=== PATIENT | female | born 1930 | race Caucasian/White ===

== ENCOUNTER 2017-12-27 13:54 | Emergency (ER) | payer MEDICARE, BC ==
[~2017-12-27] VITALS: Ht 162.6 cm; Wt 72.7 kg
[2017-12-27 14:33] VITALS: Ht 162.6 cm; Wt 72.7 kg
[2017-12-27] MEDS ORDERED: ATIVAN0.5 MG PO (14:37)
[2017-12-27] MEDS ORDERED: LIPITOR10 MG PO (14:37)
[2017-12-27] MEDS ORDERED: NEURONTIN600 MG PO (14:38)
[2017-12-27] MEDS ORDERED: IPRAT-ALBUT 0.5-3 ML UPD (14:38)
[2017-12-27] MEDS ORDERED: LOSARTAN POTASS25 MG PO (14:39)
[2017-12-27] MEDS ORDERED: SERUM TEARS EACH EYE (14:42)
[2017-12-27] MEDS ORDERED: NORVASC10 MG PO (14:43)
[2017-12-27] MEDS ORDERED: ULTRAM50 MG PO (14:44)
[2017-12-27] MEDS ORDERED: PLAVIX75 MG PO (14:44)
[2017-12-27] MEDS ORDERED: VENTOLIN HFA18 GM INH (14:44)
[2017-12-27 15:33] LABS: BASOPHILS 0.2 % (0-2); EOSINOPHILS 1.9 % (0-7); HEMATOCRIT 37.4 % (36.0-48.0); HEMOGLOBIN 11.9 g/dL (12-16); IMMATURE GRANULOCYTES 0.2 % (0-5); MCH 29.6 pg (26.0-34.0); MCHC 31.8 g/dL (31.0-37.0); MEAN PLATELET VOLUME 10.6 fL (7.4-10.4); NEUTROPHILS 56.7 % (40-80); PLATELET COUNT 230 10x3/uL (130-400); RBC 4.02 10x6/uL (4.00-5.40); RDW 14.8 % (11.5-14.5); WBC 8.5 10x3/uL (4.8-10.8)
[2017-12-27 15:36] LABS: APPEARANCE CLEAR (CLEAR); BILIRUBIN NEGATIVE (NEGATIVE); COLOR YELLOW (YELLOW); GLUCOSE NEGATIVE (NEGATIVE); KETONE NEGATIVE (NEGATIVE); NITRITE NEGATIVE (NEGATIVE); PROTEIN NEGATIVE (NEGATIVE); UROBILINOGEN NORMAL (NORMAL)
[2017-12-27 15:39] LABS: BACTERIA FEW /hpf (NONE SEEN); EPITHELIAL CELLS 0-5 /hpf (0-5); RED CELLS - URINE OCC /hpf (0-5); WHITE CELLS - URINE 0-5 /hpf (0-5)
[2017-12-27 15:55] LABS: ALBUMIN 3.5 g/dL (3.4-5.0); ANION GAP 6.2 mmol/L (8-16); BILIRUBIN - TOTAL 0.29 mg/dL (0.2-1.3); CALCIUM 8.9 mg/dL (8.5-10.1); CARBON DIOXIDE 33.9 mmol/L (21.0-32.0); CREATININE - SERUM 0.8 mg/dL (0.6-1.3); POTASSIUM - SERUM 5.1 mmol/L (3.5-5.1); PROTEIN - SERUM 6.9 g/dL (6.4-8.2)
[2017-12-27] MEDS ORDERED: MEDROL DOSE PACK4 MG PO (16:50)
[2017-12-27] MEDS ORDERED: HYDROCODON-ACE1 EAC7 PO (16:50)
[2017-12-27] MEDS ORDERED: CYCLOBENZAPRINE10 MG PO (16:50)
[2017-12-27 17:36] VITALS: BP 158/67
== END 2017-12-27 17:37 | disposition home or self-care (01) ==
LOC: D.ER 13:54
PROVIDERS: Family Medicine
DX: S39.012A Strain of muscle, fascia and tendon of lower back, initial encounter (principal); X58.XXXA Exposure to other specified factors, initial encounter; Y93.89 Activity, other specified; Y92.019 Unspecified place in single-family (private) house as the place of occurrence of the external cause; M54.30 Sciatica, unspecified side; Z86.73 Personal history of transient ischemic attack (TIA), and cerebral infarction without residual deficits; J44.9 Chronic obstructive pulmonary disease, unspecified

== ENCOUNTER 2018-04-19 12:26 | Emergency (ER) | payer MEDICARE, BC ==
[~2018-04-19] VITALS: Ht 162.6 cm; Wt 70.5 kg
[~2018-04-19 12:26] MED LIST: ATIVAN0.5 MG PO; CYCLOBENZAPRINE10 MG PO; HYDROCODON-ACE1 EAC7 PO; IPRAT-ALBUT 0.5-3 ML UPD; LIPITOR10 MG PO; LOSARTAN POTASS25 MG PO; MEDROL DOSE PACK4 MG PO; NEURONTIN600 MG PO; NORVASC10 MG PO; PLAVIX75 MG PO; SERUM TEARS EACH EYE; ULTRAM50 MG PO; VENTOLIN HFA18 GM INH
[2018-04-19 12:48] VITALS: BP 148/86; Ht 162.6 cm; Wt 70.5 kg
[2018-04-19] MEDS ORDERED: ULTRAM50 MG PO (15:18)
== END 2018-04-19 16:15 | disposition home or self-care (01) ==
LOC: D.ER 12:26
DX: M50.30 Other cervical disc degeneration, unspecified cervical region (principal); I10 Essential (primary) hypertension; J44.9 Chronic obstructive pulmonary disease, unspecified

== ENCOUNTER 2018-07-18 15:35 | Emergency (ER) | payer MEDICARE, BC ==
[~2018-07-18] VITALS: Ht 162.6 cm; Wt 72.7 kg
[2018-07-18 15:42] VITALS: Ht 162.6 cm; Wt 72.7 kg
[2018-07-18 20:34] LABS: APPEARANCE CLEAR (CLEAR); BILIRUBIN NEGATIVE (NEGATIVE); COLOR STRAW (YELLOW); GLUCOSE NEGATIVE (NEGATIVE); KETONE NEGATIVE (NEGATIVE); NITRITE NEGATIVE (NEGATIVE); PROTEIN NEGATIVE (NEGATIVE); UROBILINOGEN NORMAL (NORMAL)
[2018-07-18 22:16] VITALS: BP 215/101
== END 2018-07-18 22:17 | disposition home or self-care (01) ==
LOC: D.ER 15:35
PROVIDERS: Family Medicine
DX: M51.36 Other intervertebral disc degeneration, lumbar region (principal)

== ENCOUNTER 2019-03-29 11:56 | Observation (INO) | payer MEDICARE, BC ==
[~2019-03-29] VITALS: Ht 162.6 cm; Wt 74.8 kg
--- NOTE | ~2019-03-29 | HEMODYNAMI ---
PATIENT:CRISTY HUDDLESTON MEDICAL RECORD: [id number] : 30 LOCATION:[facility] D.2124 ADMISSION DATE: 03/29/19 Generatedon:03/30/201914:04 Patient name: CRISTY HUDDLESTON Patient #: [id number] SSN: [id number] : 1930 Date of study: 03/30/2019 Page: Of Hemodynamic Procedure Report Patient Data Patient Demographics Procedure consent was obtained First Name: CRISTY Gender: Female Last Name: FLAQUITO : 1930 Patient #: [id number] Age: 88 year(s) Race: SSN: [id number] Additional ID: [id number] Contact details [address]: [address] [place] [address] State: [place] City: [place] Zip code: [address] Past Medical History Allergies Allergen Reaction Date Comments Reported Other allergy 03/30/2019 LOVOFLOXACIN Admission Admission Data Admission Date: 03/29/2019 Admission Time: 17:45 Arrival Date: 03/30/2019 Arrival Time: 0:00 Admit Source: Emergency HIC #: [id number] department Room #: D.2124 Height (in.): 64.17 BSA: 1.81 (m2) Height (cm.): 163 BMI: 28.23 (kg/m2) Weight (lbs.): 165.35 Weight (kg.): 75 Lab Results Lab Result Date: 03/30/2019 Lab Result Time: 0:00 Biochemistry Name Units Result Min Max BUN mg/dl 18 --(---*)-- 7 18 Creatinine mg/dl 0.9 --(-*--)-- 0.6 1.3 Creatinine l 1.1 -*(----)-- 21 215 Kinase eGFR ml/min 61.00550 *-(----)-- 90 120 NONAFRICAN Troponin l ng/ml 0.027 --(-*--)-- 0 0.06 CBC Name Units Result Min Max Hemoglobin g/dl 11.6 *-(----)-- 13.5 17.5 Procedure Procedure Types Cath Procedure Diagnostic Procedure [facility] w/Coron[facility] Procedure Description Procedure Date Procedure Date: 03/30/2019 Procedure Start Time: 13:50 Procedure End Time: 14:02 Procedure Staff Name Function Carlos Ascencio MD Performing Physician Eliza Wright RT Monitor Lis Ivy RT Monitor Dana Holland RT Scrub Shantelle Austin RN Nurse Indication Chest pain Procedure Data Cath Procedure Fluoroscopy Diagnostic fluoroscopy Total fluoroscopy Time: 1.4 time: 1.4 min min Diagnostic fluoroscopy Total fluoroscopy dose: 446 dose: 446 mGy mGy Contrast Material Contrast Material Type Amount (ml) Isovue 300 64 Entry Location Entry Primary Successful Side Size Upsize Upsize Entry Closure Succes sful Closure Location (Fr) 1 (Fr) 2 (Fr) Remarks Device Remarks Femoral Right 5 Fr Exoseal artery Estimated blood loss: 5 ml Diagnostic catheters Device Type Used For End Catheter Placement MULTIPACK JL 4.0 5Fr Left Coronary catheter Angiography MULTIPACK 3DRC 5Fr Right Coronary catheter Angiography MULTIPACK Pigtail 5 Fr LV Angiography catheter Procedure Complications No complications Procedure Medications Medication Administration Route Dosage 0.9% NaCl I.V. 100 ml/hr Lidocaine 2% added to field 20 Heparin Flush Bag added to field 2 bags (1000units/500ml NS) Oxygen NC 2 l/min Versed I.V. 0.5 mg Fentanyl I.V. 25 mcg Hemodynamics Rest BSA: 1.81 (m2) HGB: 11.6 (g/dl) O2 Consumption: Estimated: 157.26 (ml/min) O2 Co nsumption indexed: Estimated:86.88 (ml/min/m) Heart Rate: 66 (bpm) Pressure Samples Time Site Value (mmHg) Purpose Heart Use Rate(bpm) 13:56 LV 145/6,9 Snapshot 64 13:56 AO 119/63(89) Pullback 78 13:56 LV 138/12,14 Pullback 78 Gradients Valve Time Site 1 Site 2 Mean SEP/DFP Peak To Heart Use (mmHg) (sec/min) Peak Rate (mmHg) (bpm) Aortic 13:56 LV AO 13 22 19 78 138/12,14 119/63(89) Calculations Valve P-P Mean Valve Index Valve Source Name Gradient Area Flow (cm2) Aortic 19 13 19 13 Snapshots Pre Cath Intra NCS Post Cath Vital Signs Time Heart Resp SPO2 etCO2 NIBP (mmHg) Rhythm Pain Sedation Rate (ipm) (%) (mmHg) Status Level (bpm) 13:12:25 69 24 99 34 158/81(131) NSR 0 (11) 10(A) , No pain 13:16:43 66 27 97 28.8 159/69(130) NSR 0 (11) 10(A) , No pain 13:20:57 65 22 93 0 151/80(134) NSR 0 (11) 10(A) , No pain 13:25:13 64 22 95 0 138/70(119) NSR 0 (11) 10(A) , No pain 13:29:25 62 35 97 20.4 116/67(92) NSR 0 (11) 10(A) , No pain 13:33:28 60 35 97 22.7 113/64(92) NSR 0 (11) 10(A) , No pain 13:37:32 61 36 97 20.4 110/61(82) NSR 0 (11) 10(A) , No pain 13:41:36 60 37 97 21.9 102/61(85) NSR 0 (11) 10(A) , No pain 13:45:39 59 35 97 19.7 99/53(75) NSR 0 (11) 10(A) , No pain 13:49:41 68 34 97 20.4 94/53(75) NSR 0 (11) 10(A) , No pain 13:54:28 64 36 98 28 134/72(101) NSR 0 (11) 9(A) , No pain 13:58:36 64 20 98 30.2 141/73(117) NSR 0 (11) 10(A) , No pain 14:02:46 65 16 97 37.1 147/75(127) NSR 0 (11) 10(A) , No pain Medications Time Medication Route Dose Verified Delivered Reason Notes Effe ctiveness by by 13:11:46 0.9% NaCl I.V. 100 Carlos Shantelle used for ml/hr St René Austin procedure MD SOW 13:12:01 Lidocaine 2% added 20ml Carlos Shantelle for local to vial [facility] anesthetic field RN 13:12:14 Heparin Flush added 2 Carlos Pepper used for Bag to bags Sigel Geovanna procedure (1000units/500ml field MD SOW NS) 13:12:24 Oxygen NC 2 Carlos Pepper for low 02 l/min Sigel Geovanna sats MD SOW 13:50:35 Versed I.V. 0.5 Carlos Pepper for mg Sonu Geovanna sedation MD SOW 13:50:49 Fentanyl I.V. 25 Carlos Pepper for mcg Sigel Geovanna sedation MD SOWmethods and procedures analyst Log Time Note 12:54:01 Informed consent obtained and on chart 12:55:00 Indication : Chest pain 12:55:10 Procedure Status Urgent Heart Cath (IP). 12:55:14 Eliza Wright RT(R) sent for patient. Start room use. 12:55:16 Time tracking: Regular hours (M-F 7:00 - 5:00) 12:55:23 Plan of Care:Hemodynamics will remain stable., Cardiac rhythm will remain stable., Comfort level will be maintained., Respiratory function will remain adequate., Patient/ family verbilizes understanding of procedure., Procedure tolerated without complication., Recovers from procedure without complications.. 12:57:50 Arrival Date: 03/30/2019 12:00:00 AM 12:58:16 Admit Source: Emergency department 12:58:27 Patient Height : 64.17 inches 12:58:34 Patient Weight : 165.35 lbs 12:59:40 Lab Result : Creatinine Kinase 1.1 l 12:59:40 Lab Result : Creatinine 0.9 mg/dl 12:59:40 Lab Result : BUN 18 mg/dl 12:59:40 Lab Result : eGFR NONAFRICAN 61.11596 ml/min 12:59:40 Lab Result : Hemoglobin 11.6 g/dl 12:59:40 Lab Result : Troponin l 0.027 ng/ml 13:03:04 Patient received from Med II to CCL 2 Alert and oriented. Tansferred to table in Supine position. 13:04:07 Warm blankets applied, and eugene hugger turned on for patient comfort. 13:04:09 Correct patient and procedure confirmed by team. 13:04:10 ECG and BP/O2 sat monitors applied to patient. 13:07:01 Pre-procedure instructions explained to patient. 13:07:01 Pre-op teaching completed and patient verbalized understanding. 13:07:03 Family unavailable. 13:07:04 Patient NPO since Midnight. 13:07:50 Full Disclosure recording started 13:08:06 Patient allergic to Other allergyLOVOFLOXACIN 13:08:08 Is the patient allergic to Iodine/contrast media? No. 13:08:10 Is patient on blood thinner?Yes 13:08:13 Patient diabetic? No. 13:08:15 Patient not . Patient is over age 55. 13:08:18 Previous problem with sedation/anesthesia? No ? 13:08:20 Snore? Yes 13:08:22 Sleep apnea? No 13:08:33 WEARS HOME O2 AT 2L 13:08:36 Deviated septum? No 13:08:36 Opens mouth fully? Yes 13:08:37 Sticks out tongue? Yes 13:08:40 Airway obstruction? Yes COPD 13:08:43 Dentures? Yes IN 13:08:46 Pre procedure: right dorsailis pedis pulse 1+ Palpable, but thready & weak; easily obliterated 13:08:53 Patient pain scale 0/10 ?. 13:08:59 IV patent on arrival in left antecubital with 0.9% NaCl at [facility]. 13:09:02 Lab results completed and on chart. 13:09:08 Risk of Mortality: 1.7 13:09:11 Risk of blood transfusion: 5.5 13:09:15 Risk of JACOB: 4.7 13:09:34 Right groin area was prepped with chlora-prep and draped in sterile fashion 13:09:35 Alarms reviewed by R. N. 13:09:36 Sharps counted by scrub and verified by R.N. 13:10:33 Use device set Femoral Dx 13:10:34 ACIST Syringe (19380) opened to sterile field. 13:10:35 Bag Decanter (2001S) opened to sterile field. 13:10:36 ACIST Hand Control (62107) opened to sterile field. 13:10:37 ACIST Manifold (66616) opened to sterile field. 13:10:38 Tegaderm 4 x 4 (1626W) opened to sterile field. 13:10:39 Medline Cath Pack ([id number]) opened to sterile field. 13:10:40 DIAGNOSTIC Multipack 5Fr catheter set (CO1381) opened to sterile field. 13:10:41 SHEATH 5FR [employer] (ATZ481) opened to sterile field. 13:10:41 EMERALD Guide Wire (285-637) opened to sterile field. 13:11:16 Vital chart was started 13:11:46 0.9% NaCl 100 ml/hr I.V. was administered by Shantelle Austin RN; used for procedure; Verbal order read back and verified. 13:12:01 Lidocaine 2% 20ml vial added to field was administered by Shantelle Austin RN; for local anesthetic; Verbal order read back and verified. 13:12:14 Heparin Flush Bag (1000units/500ml NS) 2 bags added to field was administered by Shantelle Austin RN; used for procedure; Verbal order read back and verified. 13:12:24 Oxygen 2 l/min NC was administered by Shantelle Austin RN; for low 02 sats; Verbal order read back and verified. 13:15:45 ACC The patient was administered the following blood thiners within the last 24 hours: ACCPlavix 13:16:42 Stress Test: no; N/A ? 13:18:07 Baseline sample Acquired. 13:18:44 Rhythm: sinus rhythm 13:22:08 Zero performed for pressure channel P1 13:34:35 Diagnostic Cath Status : Urgent 13:34:38 PCI Cath Status : Elective 13:37:12 ACCPatient has been prescribed/administered the following anti-anginal medication within the last 2 weeks: ARB 13:47:26 --------ALL STOP TIME OUT------ 13:47:27 Final Timeout: patient, procedure, and site verified with staff and physician. All members of the team are in agreement. 13:47:28 Right groin site verified by team. 13:47:31 Fire Safety Assessment: A--An alcohol-based skin anteseptic being used preoperatively., C--Open oxygen or nitrous oxide is being used., D--An ESU, laser, or fiber-optic light is being used. 13:47:33 Physical assessment completed. ASA score P 3 - A patient with severe systemic disease as per Carlos Ascencio MD. 13:47:38 2) 60-89 Mildly reduced kidney function, and other findings (as for stage 1) point to kidney disease. 13:47:45 Maximum allowable contrast dose (3.7 X eGFR X 0.75)172 ml. 13:47:48 Sedation plan: IV Moderate Sedation Medication:Versed, Fentanyl 13:50:35 Versed 0.5 mg I.V. was administered by Shantelle Austin RN; for sedation; Verbal order read back and verified. 13:50:39 Procedure started. 13:50:49 Fentanyl 25 mcg I.V. was administered by Shantelle Austin RN; for sedation; Verbal order read back and verified. 13:50:57 Local anesthetic to right femoral artery with Lidocaine 2% by Carlos Ascencio MD.INITIAL ACCESS ONLY 13:51:46 A 5 Fr sheath was inserted into the Right Femoral artery 13:52:07 A MULTIPACK JL 4.0 5Fr catheter was advanced over the wire and used for Left Coronary Angiography. 13:52:48 LCA angiography performed. 13:53:00 Injector settings: Ml/sec: 3, Volume: 6, 13:53:59 Catheter removed. 13:54:08 A MULTIPACK 3DRC 5Fr catheter was advanced over the wire and used for Right Coronary Angiography. 13:54:45 RCA angiography performed. 13:54:52 ACCDominant side:Right 13:54:56 Injector settings: Ml/sec: 3, Volume: 6, 13:55:00 Catheter removed. 13:55:09 A MULTIPACK Pigtail 5 Fr catheter was advanced over the wire and used for LV Angiography. 13:56:29 LV hemodynamics recorded. 13:56:35 EF : 55 % 13:56:49 LV gram done using HUTSON 13:56:54 Injector settings: Ml/sec: 10, Volume: 20, 13:57:00 Catheter removed. 13:57:19 EXOSEAL 5Fr (EX500) opened to sterile field. 13:57:49 Sheath removed intact; hemostasis achieved with Exoseal to the Right Femoral artery. 13:57:55 Procedure ended.(Physican Out) 13:58:05 Contrast amount:Isovue 300 64ml. 13:58:08 Maximum allowable dose exceeded? No. 13:58:32 Fluoroscopy time 01.40 minutes. 13:58:40 Flurop Dose total: 446 13:58:40 Fluoroscopy dose: 446 mGy 13:58:54 Dose Area Product 14113 mGy/cm. 13:58:59 Insertion/operative site no bleeding no hematoma. 13:59:05 Post-op/insertion site Right Femoral artery dressed using a 4 x 4 and Tegaderm. 13:59:11 Post right femoral artery:stable 13:59:14 Post Procedure Pulses reassessed and unchanged 13:59:18 Sharps counted by scrub and verified by R.N. 13:59:28 Post-procedure physical assessment completed. ASA score P 2 - A patient with mild systemic disease as per Carlos Ascencio MD. 13:59:39 Post procedure rhythm: unchanged. 13:59:44 Estimated blood loss: 5 ml 13:59:46 Post procedure instruction explained to patient.Patient verbalizes understanding. 13:59:48 Patient needs reinforcement of post procedure teaching. 14:01:21 Procedure and supply charges have been captured, reviewed, submitted and are correct. 14:02:13 Procedure Complication : No complications 14:02:17 Vital chart was stopped 14:02:24 [facility] Findings: mild to moderate CAD (<70%) 14:02:26 Operative report dictated upon procedure completion. 14:02:27 See physician's report for complete and final results. 14:02:32 Report given to [facility] II. 14:02:37 Patient transfered to Med II with Bed. 14:02:41 Procedure ended. 14:02:41 Full Disclosure recording stopped 14:02:50 End room use (Document Last) 14:02:50 End room use (Document Last) Device Usage Item Name Manufacture Quantity Catalog Hospital Part Current Minimal L ot# / Number Charge Number Stock Stock Serial# Code ACIST Acist 1 85614 142312 374638 320755 20 Syringe Medical (22649) Systems Inc Bag Microtek 1 878114 20880 095767 5 Decanter Medical Inc. () ACIST Hand Acist 1 63544 721808 017750 451673 5 Control Medical (13617) Systems Inc ACIST Acist 1 31295 778414 631774 396923 5 Manifold Medical (18954) Systems Inc Tegaderm 4 3M 1 1626W 703789 671074 217043 5 x 4 (1626W) Medline Medline 1 [id number] 721818 79388 134200 5 Cath Pack ([id number]) DIAGNOSTIC Cardinal 1 IC1766 626244 67242 338487 30 Multipack Health 5Fr catheter set (AR4902) SHEATH 5FR Terumo 1 BFC444 208868 595289 683935 5 [employer] (FPO719) EMERALD Cardinal 1 502-159 166881 025884 662037 5 Guide Wire Health (502-250) MULTIPACK Cardinal 1 006994 5 JL 4.0 5Fr Health catheter MULTIPACK Cardinal 1 015796 5 3DRC 5Fr Health catheter MULTIPACK Cardinal 1 382924 5 Pigtail 5 Health Fr catheter EXOSEAL 5Fr Cardinal 1 EX500 875962 855771 117834 10 (EX500) Health Signature Audit [place] Stage Time Signature Unsigned Intra-Procedure 03/30/2019 Lis 2:03:18 PM Cata RT(R) (CV) Intra-Procedure 03/30/2019 Shantelle 2:03:55 PM Geovanna SOW Intra-Procedure 03/30/2019 Carlos Tamayo 2:04:35 PM René SOLIS Signatures Performing Physician : Signature : Carlos Ascencio MD Date : Time : Monitor : Eliza Wright Signature : RT Date : Time : Monitor : Lis Signature : Cata RT Date : Time : Nurse : Shantelle Signature : Geovanna RN Date : Time : [place] [address] [place] [address]
[2019-03-29 12:43] LABS: BASOPHILS 0.2 % (0-2); EOSINOPHILS 0.5 % (0-7); HEMATOCRIT 38.7 % (36.0-48.0); HEMOGLOBIN 12.5 g/dL (12-16); IMMATURE GRANULOCYTES 0.4 % (0-5); LYMPHOCYTES 14.9 % (15-50); MCH 31.1 pg (26.0-34.0); MCHC 32.3 g/dL (31.0-37.0); MCV 96.3 fL (80.0-100.0); MEAN PLATELET VOLUME 9.9 fL (7.4-10.4); MONOCYTES 16.3 % (2-11); NEUTROPHILS 67.7 % (40-80); RBC 4.02 10x6/uL (4.00-5.40); RDW 17.5 % (11.5-14.5); WBC 9.5 10x3/uL (4.8-10.8)
[2019-03-29 13:04] LABS: CALC OSMOLALITY 288 mosm/kg (275-300); CARBON DIOXIDE 26.8 mmol/L (21.0-32.0); CHLORIDE - SERUM 107 mmol/L (98-107); CREATININE - SERUM 0.9 mg/dL (0.6-1.3); GLUCOSE 94 mg/dL (74-106); POTASSIUM - SERUM 4.2 mmol/L (3.5-5.1); SODIUM 144 mmol/L (136-145); UREA NITROGEN 19 mg/dL (7-18); eGFR NON AFRICAN AMERICAN 62 mL/min (90-120)
[2019-03-29 13:20] LABS: ALBUMIN 3.4 g/dL (3.4-5.0); ALKALINE PHOSPHATASE 67 U/L (46-116); ALT (SGPT) 17 U/L (10-68); AMYLASE - SERUM 55 U/L (25-115); BILIRUBIN - TOTAL 0.61 mg/dL (0.2-1.3); CKMB 0.9 U/L (0.0-3.6); CREATINE KINASE 32 UL (21-215); LIPASE 250 U/L (73-393); PRO BNP 4438 pg/mL (0-450); PROTEIN - SERUM 6.1 g/dL (6.4-8.2); TROPONIN-I 0.024 ng/mL (0.000-0.060)
[2019-03-29 13:25] LABS: PLATELET COUNT 299 10x3/uL (130-400)
[2019-03-29 13:31] LABS: APTT 28.4 SECONDS (22.8-39.4); INR 1.09 (0.85-1.17); PROTIME 13.6 SECONDS (11.6-15.0)
[2019-03-29 13:40] LABS: D-DIMER-QUANTITATIVE 2.33 ug/mLFEU (0.20-0.54)
[2019-03-29 14:43] LABS: APPEARANCE CLEAR (CLEAR); BACTERIA FEW /hpf (NEGATIVE); BILIRUBIN NEGATIVE (NEGATIVE); COLOR YELLOW (YELLOW); EPITHELIAL CELLS OCC /hpf (0-5); GLUCOSE NEGATIVE (NEGATIVE); KETONE NEGATIVE (NEGATIVE); MUCUS <1+ /lpf (NONE SEEN); NITRITE NEGATIVE (NEGATIVE); PROTEIN NEGATIVE (NEGATIVE); RED CELLS - URINE NONE SEEN /hpf (0-5); UROBILINOGEN NORMAL (NORMAL); WHITE CELLS - URINE OCC /hpf (NEGATIVE)
--- NOTE | 2019-03-29 17:56 | NUR ---
TRIED TO CALL REPORT ON PT BUT WAS TOLD WOULD HAVE TO BE CALLED BACK
--- NOTE | 2019-03-29 18:19 | NUR ---
FIXING TO TAKE PT TO ROOM AND MED II CALLED AND STATED THE ROOM WAS DIRTY AND THEY WOULD CALL BACK WHEN CLEANED
--- NOTE | 2019-03-29 18:48 | NUR ---
STILL WAITING ON ROOM TO BE CLEANED
[2019-03-29 20:00] VITALS: BP 158/74
[2019-03-29 20:24] VITALS: BP 158/74; BMI 28.4
--- NOTE | 2019-03-29 20:30 | NUR ---
RECIEVED REPORT FROM OUTGOING NURSE. PT ARRIVED FROM ER, VIA BED. INITIAL VSS, AAOX4, NO S/S OF DISTRESS. PT C/O SOB. PLACED PT ON 2L O2 AND NOTIFIED RT ABOUT PT'S BREATHING TREATMENT. PT ALSO VOMITING ON ARRIVAL TO UNIT. PRN ZOFRAN GIVEN. PT VOICED THANKS.
--- NOTE | 2019-03-29 20:46 | NUR ---
PT RECIEVING BREATHING TX AT THIS TIME. WARM BLANKET ALSO PROVIDED PER PT'S REQUEST. WILL CPOC.
[2019-03-30] VITALS: BP 132/60
[2019-03-30 04:00] VITALS: BP 150/62
[2019-03-30 05:49] LABS: ALBUMIN 2.9 g/dL (3.4-5.0); ALKALINE PHOSPHATASE 63 U/L (46-116); ALT (SGPT) 15 U/L (10-68); CALC OSMOLALITY 291 mosm/kg (275-300); CALCIUM 8.9 mg/dL (8.5-10.1); CARBON DIOXIDE 29.6 mmol/L (21.0-32.0); CHLORIDE - SERUM 109 mmol/L (98-107); CKMB 1.1 U/L (0.0-3.6); CREATINE KINASE 40 UL (21-215); CREATININE - SERUM 0.9 mg/dL (0.6-1.3); GLUCOSE 82 mg/dL (74-106); POTASSIUM - SERUM 4.3 mmol/L (3.5-5.1); PROTEIN - SERUM 5.4 g/dL (6.4-8.2); SODIUM 146 mmol/L (136-145); TROPONIN-I 0.027 ng/mL (0.000-0.060); UREA NITROGEN 18 mg/dL (7-18); eGFR NON AFRICAN AMERICAN 62 mL/min (90-120)
[2019-03-30 06:00] LABS: BASOPHILS 0.2 % (0-2); EOSINOPHILS 0.9 % (0-7); HEMOGLOBIN 11.6 g/dL (12-16); IMMATURE GRANULOCYTES 0.4 % (0-5); LYMPHOCYTES 15.4 % (15-50); MCH 30.8 pg (26.0-34.0); MCHC 31.4 g/dL (31.0-37.0); MCV 98.1 fL (80.0-100.0); MEAN PLATELET VOLUME 10.5 fL (7.4-10.4); MONOCYTES 16.8 % (2-11); NEUTROPHILS 66.3 % (40-80); PLATELET COUNT 285 10x3/uL (130-400); RBC 3.77 10x6/uL (4.00-5.40); RDW 17.8 % (11.5-14.5); WBC 8.1 10x3/uL (4.8-10.8)
[2019-03-30 06:30] LABS: BILIRUBIN - TOTAL 0.47 mg/dL (0.2-1.3)
--- NOTE | 2019-03-30 07:58 | NUR ---
ASSESSMENT DONE. DENIES NEEDS
[2019-03-30 09:07] LABS: CHOL - HDL RATIO 3.9 ratio (2.3-4.1); LDL-HDL RATIO 2.5 ratio (1.5-3.5)
--- NOTE | 2019-03-30 09:52 | NUR ---
I have reviewed this patient and I concur with the Shift Assessment completed by the Licensed Practical Nurse today this shift.
[2019-03-30 09:57] VITALS: BP 105/57
[2019-03-30 12:37] VITALS: BP 130/64
[2019-03-30 12:49] VITALS: Ht 162.6 cm; Wt 74.8 kg
--- NOTE | 2019-03-30 12:57 | NUR ---
TO FORKLIFT MATERIAL HANDLER PER BED
--- NOTE | 2019-03-30 12:59 | CN ---
PATIENT NAME:CRISTY HUDDLESTON MEDICAL RECORD: [id number] : [birth year] LOCATION:[facility] D.2124 ADMIT DATE: 03/29/19 ACCOUNT: [id number] CONSULTING PHYSICIAN: SARAVANAN NEGRETE MD REFERRING PHYSICIAN: EZEKIEL CLEVELAND MD DATE OF CONSULTATION: 03/30/2019 HISTORY OF PRESENT ILLNESS: An 88-year-old female with a history of underlying obstructive pulmonary disease, hypertension, hyperlipidemia, admitted with chest pain. This occurred when getting ready to take a shower, radiating to the left jaw and arm accompanied by nausea with marked exacerbation of usual baseline, dyspnea. We are asked to see her concerning her cardiovascular status. PAST MEDICAL HISTORY: Includes: 1. History of hypertension. 2. Hyperlipidemia. 3. Obstructive coronary artery disease. 4. Osteoarthritis. ALLERGIES: LEVAQUIN. MEDICATIONS: Typically include Flexeril 10 mg p.o. b.i.d., Plavix 75 every day, atorvastatin 10 every day, losartan 50 every day, amlodipine 10 every day, Neurontin 600 mg every day. SOCIAL HISTORY: Lives by herself. Nonsmoker. He is able to care of ADLs. No set exercise program REVIEW OF SYSTEMS: The patient reports easy bruising but reports no swollen glands. The patient reports no fever, no night sweats, no significant weight gain, no significant weight loss. No significant exercise tolerance. The patient reports no dry eyes, no irritation, no vision change. Patient reports no difficulty hearing and no ear pain. Patient reports no frequent nose bleeds or nose and sinus problems. Patient reports on arm pain on exertion. No shortness of breath while lying down. No history of heart murmur. Patient reports no cough, no wheezing or coughing up blood. Patient reports no abdominal pain, no vomiting. Normal appetite. No diarrhea and not vomiting blood. No nausea and no constipation. Patient reports no incontinence. No difficulty urinating. No hematuria. No increased frequency. Patient reports no muscle aches. No weakness, no arthralgias, no back pain. No swelling of the extremities. Patient reports no abnormal mole, no jaundice, no rashes. Reports no loss of consciousness. No weakness and no numbness. No seizures, dizziness, or headaches. The patient reports no depression, no sleep disturbance, feeling safe in a relationship and no alcohol abuse. Patient reports on fatigue. Reports no runny nose or sinus pressure. No itching, no hives, and no frequent sneezing. PHYSICAL EXAMINATION: GENERAL: Pleasant female in no acute distress, appears stated age. VITAL SIGNS: Blood pressure 150/62, pulse 64 and regular. HEENT: Normocephalic, atraumatic. NECK: No JVD or bruit. HEART: Regular. II/ systolic ejection murmur. LUNGS: Slightly prolonged expiratory phase. No active wheezes. ABDOMEN: Soft, nontender. CONSULT REPORT [id number] CRISTY HUDDLESTON EXTREMITIES: Pulses 2+. No edema. DIAGNOSTIC DATA: EKG shows left axis deviation, poor R-wave progression. IMPRESSION: Acute coronary syndrome, multiple risk factors. PLAN: For diagnostic angiography, intervention based on the above. TRANSINT:[id number] Voice Confirmation ID: [id number] DOCUMENT ID: [id number] SARAVANAN NEGRETE MD at 1259 CC: [id number] DICTATION DATE: 03/30/19 0850 TRUST OFFICER: 03/30/19 1105 ADM IN [place] [id number] [place] [address]
--- NOTE | 2019-03-30 15:36 | NUR ---
UPON ADMIT, PATIENT HAS NOT HAD A FLU SHOT THIS YEAR. FAMILY REPORTS THAT SHE JUST HAD ANTIBIOTICS FOR "A VIRUS IN THE EYE". I ASKED THAT THEY SPEAK TO DR. MORRIS WHEN TO GET FLU SHOT.
--- NOTE | 2019-03-30 16:04 | NUR ---
DC GIVEN TO PT
--- NOTE | 2019-03-30 16:35 | NUR ---
DC HOME PER PERSONAL CAR
--- NOTE | 2019-03-31 07:00 | MORECARE ---
CASE MANAGEMENT DISCHARGE SUMMARY PATIENT: CRISTY BENNETT UNIT: [id number] ADM DATE: 03/29/19 AGE: 88 : 30 SEX: F ROOM/BED: D.2124 AUTHOR: MELISA SPANN PHYSICIAN: REFERRING PHYSICIAN: EZEKIEL CLEVELAND MD DATE OF SERVICE: 03/31/19 Discharge Plan Patient Name: CRISTY BENNETT [facility] [facility] 1930 Planned Disposition: Home Anticipated Discharge Date: 03/30/19 Discharge Date: 03/30/2019 Expected LOS: 1 Initial Reviewer: [email or web address] Initial Review Date: 03/31/2019 Generated: 03/31/19 7:59 am Coverage Notice Reviewer: [email or web address] Colten Benavides Notice Issued Date-Time: 03/29/2019 17:08 Notice Type: Medicare Outpatient Observation Notice Notice Delivered To: Patient Relationship to Patient: Self Oracle Database Consultant Name: Joseph Bennett Delivery Method: HAND - Hand Delivered Lillian Days: Prior Verbal Notification: Recipient Understood Notice: Yes Recipient Signature: Yes Med Rec Note Co-signed by Attending: Coverage Notice Comment: DOWNING delivered to and signed by patient. Original to patient and chart. Patient Name: CRISTY BENNETT Page [phone] at 0700 All edits/amendments must be made on the electronic document DICTATION DATE: 03/31/1959 TAR DISTILLATION SUPERVISOR: DANIELA 03/31/19 0659 RPT#: [id number] DC DATE:03/30/19 STATUS: DIS IN [facility] [address] [place] [address] END OF REPORT
--- NOTE | 2019-03-31 12:27 | OP ---
PATIENT NAME: CRISTY HUDDLESTON MEDICAL RECORD: [id number] :30 LOCATION:D. D.2124 ADMISSION DATE:03/29/19 SURGEON: SRAAVANAN NEGRETE MD DATE OF OPERATION: 03/30/2019 PROCEDURE: Left heart catheterization, selective coronary angiography, right femoral artery approach. CATHETERS: A 5-Marshallese sheath, 5/4 left and right Ann Marie, 5/4 pig. The procedure was well tolerated. The patient returned to the molina. Sheath removed. ExoSeal device was placed. FINDINGS: Left ventriculography in 30-degree HUTSON view; normal wall motion and normal systolic function. CORONARY ANATOMY: LEFT MAIN: Left main is free of disease. LAD: Free of disease in the diagonal system. CIRCUMFLEX: Free of disease in the marginal system. RIGHT CORONARY ARTERY: Dominant artery, gives rise to PDA, free of disease. IMPRESSION: Normal left ventricular systolic function, normal coronary anatomy. TRANSINT:[id number] Voice Confirmation ID: [id number] DOCUMENT ID: [id number] SARAVANAN NEGRETE MD at 1227 CC: [id number] DICTATION DATE: 03/30/19 1405 HEEL CUTTER: 03/30/19 1649 DIS IN 03/30/19 [place] [address] [address] [place] [address]
== END 2019-03-30 16:36 | disposition home or self-care (01) ==
LOC: D.ER 11:56 → D.M2 17:45 → OBSVTIME 17:46 → D.M2 03-30 16:36
PROVIDERS: Family Medicine; Internal Medicine Interventional Cardiology; ADMIT Family Medicine; ATTEND Family Medicine
DX: I24.9 Acute ischemic heart disease, unspecified (principal); I10 Essential (primary) hypertension; R53.1 Weakness; J44.9 Chronic obstructive pulmonary disease, unspecified; G62.9 Polyneuropathy, unspecified; E78.5 Hyperlipidemia, unspecified; I73.9 Peripheral vascular disease, unspecified

== ENCOUNTER → 2019-06-13 11:50 | Outpatient (CLI) | payer MEDICARE, BC ==
[2019-03-30 12:49] VITALS: BMI 28.3
== END | disposition home or self-care (01) ==
LOC: D.US 11:30
PROVIDERS: ATTEND Internal Medicine Interventional Cardiology
DX: I65.29 Occlusion and stenosis of unspecified carotid artery (principal)